=== PATIENT | male | born 1975 | race Caucasian/White ===

== ENCOUNTER 2020-05-20 13:48 | Emergency (ER) ==
[~2020-05-20] VITALS: Ht 175.3 cm; Wt 72.7 kg
== END 2020-05-20 14:12 | disposition left against medical advice (07) ==
LOC: COL.ER 13:48
DX: R53.81 Other malaise (principal); Z53.21 Procedure and treatment not carried out due to patient leaving prior to being seen by health care provider

== ENCOUNTER 2020-05-20 20:00 | Emergency (ER) ==
[~2020-05-20] VITALS: Ht 175.3 cm; Wt 68.2 kg
== END 2020-05-20 20:30 | disposition left against medical advice (07) ==
LOC: COL.ER 20:00
DX: F41.9 Anxiety disorder, unspecified (principal)

== ENCOUNTER → 2020-06-04 | Emergency (ER) ==
[~2020-06-04] MED LIST: ADDERALL30 MG PO; VISTARIL100 MG PO
== END ==
LOC: COL.ER 00:12
DX: Z72.9 Problem related to lifestyle, unspecified (principal)

== ENCOUNTER 2020-06-06 11:36 | Emergency (ER) | payer OTHER ==
[~2020-06-06] VITALS: Ht 175.3 cm; Wt 70.5 kg
[2020-06-06 11:50] VITALS: BP 133/100; PULSE 84; TEMP 98.3
[2020-06-06] MEDS ORDERED: ADDERALL30 MG PO (13:19)
[2020-06-06] MEDS ORDERED: VISTARIL100 MG PO (13:20)
[2020-06-06 13:39] LABS: COLLECTION METHOD CLEAN CATCH
[2020-06-06 13:43] LABS: BASO # 0.1 (0.0-0.2); BASO % 0.9 % (0.0-2.0); EOS # 0.2 (0.0-0.7); EOS % 2.7 % (0-4.0); GRAN # 4.9 (1.4-6.5); GRAN % 62.2 % (42.2-75.2); LYMPH % 25.2 % (20.0-51.0); MEAN CELL VOLUME 91 fl (80.0-100.0); MEAN CORPUSCULAR HEMOGLOBIN 31 pg (27.0-31.0); MEAN CORPUSCULAR HGB CONC 34 g/dl (33.0-37.0); MONO # 0.6 (0.1-0.6); MONO % 8.2 % (1.7-9.3); PLATELET COUNT 379 K/mm3 (130-400); REDCELL DISTRIBUTION WIDTH-CV 12.5 % (11.5-14.5)
[2020-06-06 13:52] LABS: MUCOUS Present /lpf; PH 5 (5-8); SQUAMOUS EPITHELIAL 0-2 /hpf; URINE APPEARANCE Clear; URINE BACTERIA None Seen /hpf; URINE BILIRUBIN Negative (NEGATIVE); URINE BLOOD Negative (NEGATIVE); URINE COLOR Yellow; URINE GLUCOSE Negative (NEGATIVE); URINE KETONE Negative (NEGATIVE); URINE LEUKOCYTE ESTERASE Negative (NEGATIVE); URINE NITRATE Negative (NEGATIVE); URINE PROTEIN(semi-quant) Negative (NEGATIVE); URINE RBC 0-2 /hpf; URINE UROBILINOGEN Negative (NEGATIVE)
[2020-06-06 13:56] LABS: ALANINE AMINOTRANSFERASE 17 U/L (4-49); ALBUMIN 4.2 gm/dL (3.5-5.0); ALCOHOL(ethanol),MEDICAL < 10 mg/dL; ALKALINE PHOSPHATASE 78 U/L (50-136); ANION GAP 6 mmol/L (7-16); AST,SGOT 22 U/L (15-37); BILIRUBIN,TOTAL 0.6 mg/dL (0.0-1.0); BLOOD UREA NITROGEN 13 mg/dL (9-20); CARBON DIOXIDE 26 mmol/L (22-30); CHLORIDE 105 mmol/L (98-107); CREATININE, serum 0.82 (0.66-1.25); GLUCOSE 100 mg/dL (74-106); POTASSIUM 4.2 mmol/L (3.4-5.0); SODIUM 138 mmol/L (137-145); TOTAL PROTEIN 7.3 gm/dL (6.4-8.2)
[2020-06-06 13:58] LABS: TRICYCLIC ANTIDEPRESS URINE NEGATIVE
== END 2020-06-06 14:06 | disposition left against medical advice (07) ==
LOC: COL.ER 11:36
PROVIDERS: Physician Assistant
DX: F15.980 Other stimulant use, unspecified with stimulant-induced anxiety disorder (principal); F17.200 Nicotine dependence, unspecified, uncomplicated

== ENCOUNTER 2020-07-14 14:36 | Emergency (ER) | payer OTHER ==
[~2020-07-14] VITALS: Ht 175.3 cm; Wt 70.5 kg
[2020-07-14] MEDS ORDERED: NAPROSYN500 MG PO (15:13)
[2020-07-14 15:25] VITALS: BP 158/89; PULSE 89; TEMP 98.9
[2020-07-16] MEDS ORDERED: PEN-VEE K500 MG PO (11:12)
== END 2020-07-14 15:27 | disposition home or self-care (01) ==
LOC: COL.ER 14:36
DX: M72.2 Plantar fascial fibromatosis (principal); F90.9 Attention-deficit hyperactivity disorder, unspecified type; F41.9 Anxiety disorder, unspecified; F17.210 Nicotine dependence, cigarettes, uncomplicated; Z88.8 Allergy status to other drugs, medicaments and biological substances

== ENCOUNTER 2020-07-15 20:49 | Emergency (ER) | payer OTHER ==
[~2020-07-15] VITALS: Ht 175.3 cm; Wt 70.5 kg
[~2020-07-15 20:49] MED LIST changes: +NAPROSYN500 MG PO
[2020-07-15 21:40] VITALS: TEMP 98.8
[2020-07-15 21:49] LABS: STREP SCREEN NEGATIVE
[2020-07-15 22:00] VITALS: BP 173/112; PULSE 100
[2020-07-16] MEDS ORDERED: PEN-VEE K500 MG PO (11:12)
== END 2020-07-15 22:03 | disposition home or self-care (01) ==
LOC: COL.ER 20:49
PROVIDERS: Nurse Practitioner
DX: B34.9 Viral infection, unspecified (principal); F17.210 Nicotine dependence, cigarettes, uncomplicated; Z88.8 Allergy status to other drugs, medicaments and biological substances; Z88.6 Allergy status to analgesic agent

== ENCOUNTER → 2020-07-16 | Emergency (ER) | payer OTHER ==
[~2020-07-16] VITALS: Ht 175.3 cm; Wt 70.5 kg
[~2020-07-16] MED LIST changes: +PEN-VEE K500 MG PO
[2020-07-16 10:56] VITALS: BP 164/109; PULSE 103; TEMP 99.2
== END ==
LOC: COL.ER 10:56
DX: J02.8 Acute pharyngitis due to other specified organisms (principal); F17.210 Nicotine dependence, cigarettes, uncomplicated; Z88.8 Allergy status to other drugs, medicaments and biological substances

== ENCOUNTER 2020-08-23 09:31 | Emergency (ER) | payer OTHER ==
[~2020-08-23] VITALS: Ht 175.3 cm; Wt 68.2 kg
[2020-08-23 09:36] VITALS: TEMP 97.9
[2020-08-23 10:01] LABS: COLLECTION METHOD CLEAN CATCH
[2020-08-23 10:11] LABS: BASO # 0.1 (0.0-0.2); BASO % 1.2 % (0.0-2.0); EOS # 0.2 (0.0-0.7); EOS % 2.5 % (0-4.0); GRAN # 4.3 (1.4-6.5); GRAN % 59.3 % (42.2-75.2); HEMATOCRIT 40.1 % (42.0-52.0); HEMOGLOBIN 13.8 g/dl (13.5-18.0); LYMPH % 27.9 % (20.0-51.0); MEAN CELL VOLUME 91 fl (80.0-100.0); MEAN CORPUSCULAR HEMOGLOBIN 31 pg (27.0-31.0); MEAN CORPUSCULAR HGB CONC 34 g/dl (33.0-37.0); MEAN PLATELET VOLUME 9.3 fl (7.4-10.4); MONO # 0.6 (0.1-0.6); MONO % 8.7 % (1.7-9.3); PLATELET COUNT 355 K/mm3 (130-400); RED BLOOD COUNT 4.41 M/mm3 (4.20-5.60); REDCELL DISTRIBUTION WIDTH-CV 12.3 % (11.5-14.5)
[2020-08-23 10:17] LABS: PH 5 (5-8); SQUAMOUS EPITHELIAL None Seen /hpf; URINE APPEARANCE Clear; URINE BACTERIA None Seen /hpf; URINE BILIRUBIN Negative (NEGATIVE); URINE BLOOD Negative (NEGATIVE); URINE COLOR Yellow; URINE GLUCOSE Negative (NEGATIVE); URINE KETONE Negative (NEGATIVE); URINE LEUKOCYTE ESTERASE Negative (NEGATIVE); URINE NITRATE Negative (NEGATIVE); URINE PROTEIN(semi-quant) Negative (NEGATIVE); URINE RBC 0-2 /hpf; URINE UROBILINOGEN Negative (NEGATIVE)
[2020-08-23 10:21] VITALS: BP 179/96; PULSE 86
[2020-08-23 10:28] LABS: ALANINE AMINOTRANSFERASE 16 U/L (4-49); ALBUMIN 4.2 gm/dL (3.5-5.0); ALKALINE PHOSPHATASE 82 U/L (50-136); ANION GAP 7 mmol/L (7-16); AST,SGOT 27 U/L (15-37); BILIRUBIN,TOTAL 0.6 mg/dL (0.0-1.0); BLOOD UREA NITROGEN 12 mg/dL (9-20); CALCIUM 8.8 mg/dL (8.4-10.2); CARBON DIOXIDE 29 mmol/L (22-30); CHLORIDE 102 mmol/L (98-107); CREATININE, serum 0.95 (0.66-1.25); GLUCOSE 106 mg/dL (74-106); LIPASE 94 U/L (23-300); POTASSIUM 3.4 mmol/L (3.4-5.0); SODIUM 138 mmol/L (137-145); TOTAL PROTEIN 7.2 gm/dL (6.4-8.2)
[2020-08-23 10:34] LABS: C-REACTIVE PROTEIN < 0.5 mg/dL (0.0-0.9)
== END 2020-08-23 10:22 | disposition left against medical advice (07) ==
LOC: COL.ER 09:31
PROVIDERS: Family Medicine
DX: R30.0 Dysuria (principal); G89.29 Other chronic pain; Z87.891 Personal history of nicotine dependence; Z79.1 Long term (current) use of non-steroidal anti-inflammatories (NSAID)
CPT/HCPCS: J7120

== ENCOUNTER 2020-10-21 07:00 | Emergency (ER) | payer OTHER ==
[2020-10-21 07:04] VITALS: BP 175/114; PULSE 99; TEMP 97.9
== END 2020-10-21 07:23 | disposition home or self-care (01) ==
LOC: COL.ER 07:00
DX: F15.120 Other stimulant abuse with intoxication, uncomplicated (principal); G89.29 Other chronic pain; K08.89 Other specified disorders of teeth and supporting structures; I10 Essential (primary) hypertension; Z88.8 Allergy status to other drugs, medicaments and biological substances

== ENCOUNTER 2020-11-06 09:45 | Emergency (ER) | payer OTHER ==
[~2020-11-06] VITALS: Ht 175.3 cm; Wt 75.0 kg
[2020-11-06 09:47] VITALS: TEMP 98.6
[2020-11-06 10:45] VITALS: BP 138/98; PULSE 99
== END 2020-11-06 10:45 | disposition home or self-care (01) ==
LOC: COL.ER 09:45
DX: F15.10 Other stimulant abuse, uncomplicated (principal); F41.0 Panic disorder [episodic paroxysmal anxiety]; F17.200 Nicotine dependence, unspecified, uncomplicated; Z88.8 Allergy status to other drugs, medicaments and biological substances

== ENCOUNTER 2020-11-06 21:53 | Emergency (ER) | payer OTHER ==
[~2020-11-06] VITALS: Ht 175.3 cm; Wt 75.0 kg
[2020-11-06 21:57] VITALS: TEMP 98.7
[2020-11-06 23:29] LABS: BASO # 0.1 (0.0-0.2); BASO % 0.7 % (0.0-2.0); EOS % 0.3 % (0-4.0); GRAN # 3.9 (1.4-6.5); GRAN % 54.7 % (42.2-75.2); HEMATOCRIT 42.8 % (42.0-52.0); HEMOGLOBIN 14.3 g/dl (13.5-18.0); LYMPH % 27.2 % (20.0-51.0); MEAN CELL VOLUME 93 fl (80.0-100.0); MEAN CORPUSCULAR HEMOGLOBIN 31 pg (27.0-31.0); MEAN CORPUSCULAR HGB CONC 33 g/dl (33.0-37.0); MEAN PLATELET VOLUME 9.1 fl (7.4-10.4); MONO # 1.2 (0.1-0.6); MONO % 16.3 % (1.7-9.3); PLATELET COUNT 291 K/mm3 (130-400); RED BLOOD COUNT 4.58 M/mm3 (4.20-5.60); REDCELL DISTRIBUTION WIDTH-CV 12.5 % (11.5-14.5)
[2020-11-06 23:39] LABS: ALANINE AMINOTRANSFERASE 21 U/L (4-49); ALBUMIN 4.1 gm/dL (3.5-5.0); ALKALINE PHOSPHATASE 91 U/L (50-136); ANION GAP 9 mmol/L (7-16); AST,SGOT 32 U/L (15-37); BILIRUBIN,TOTAL 0.5 mg/dL (0.0-1.0); BLOOD UREA NITROGEN 13 mg/dL (9-20); CARBON DIOXIDE 26 mmol/L (22-30); CHLORIDE 100 mmol/L (98-107); GLUCOSE 122 mg/dL (74-106); POTASSIUM 3.9 mmol/L (3.4-5.0); SODIUM 135 mmol/L (137-145); TOTAL PROTEIN 7.1 gm/dL (6.4-8.2)
[2020-11-06 23:50] LABS: TROPONIN-I < 0.012 ng/mL (0.000-0.035)
[2020-11-07 00:21] VITALS: BP 154/98; PULSE 70
== END 2020-11-07 00:21 | disposition home or self-care (01) ==
LOC: COL.ER 21:53
PROVIDERS: Physician Assistant
DX: F15.10 Other stimulant abuse, uncomplicated (principal); F17.210 Nicotine dependence, cigarettes, uncomplicated; Z88.8 Allergy status to other drugs, medicaments and biological substances

== ENCOUNTER 2020-11-26 03:27 | Emergency (ER) | payer OTHER ==
[~2020-11-26] VITALS: Ht 175.3 cm; Wt 74.5 kg
[2020-11-26 03:52] VITALS: BP 163/96; TEMP 97.9
[2020-11-26] MEDS ORDERED: AMOXICILLIN 50500 MG PO (04:20)
[2020-11-26] MEDS ORDERED: PERIDEX (CHLOR480 ML MM (04:20)
[2020-11-26 04:45] VITALS: PULSE 91
[2020-11-27] MEDS ORDERED: CLEOCIN HCL300 MG PO (04:02)
== END 2020-11-26 04:45 | disposition home or self-care (01) ==
LOC: COL.ER 03:27
DX: K04.7 Periapical abscess without sinus (principal); F17.210 Nicotine dependence, cigarettes, uncomplicated; Z88.1 Allergy status to other antibiotic agents

== ENCOUNTER 2020-11-27 03:46 | Emergency (ER) | payer OTHER ==
[~2020-11-27] VITALS: Ht 175.3 cm; Wt 72.7 kg
[~2020-11-27 03:46] MED LIST changes: +AMOXICILLIN 50500 MG PO; +PERIDEX (CHLOR480 ML MM
[2020-11-27 03:49] VITALS: BP 146/92; PULSE 85; TEMP 97.7
[2020-11-27] MEDS ORDERED: CLEOCIN HCL300 MG PO (04:02)
== END 2020-11-27 04:22 | disposition home or self-care (01) ==
LOC: COL.ER 03:46
DX: K04.7 Periapical abscess without sinus (principal); Z87.891 Personal history of nicotine dependence; Z88.8 Allergy status to other drugs, medicaments and biological substances

== ENCOUNTER 2020-11-27 18:43 | Emergency (ER) | payer OTHER ==
[~2020-11-27] VITALS: Ht 175.3 cm; Wt 81.8 kg
[2020-11-27 18:43] VITALS: BP 155/75; PULSE 103; TEMP 98.2
[~2020-11-27 18:43] MED LIST changes: +CLEOCIN HCL300 MG PO
== END 2020-11-27 20:00 | disposition home or self-care (01) ==
LOC: COL.ER 18:43
DX: R10.13 Epigastric pain (principal); K04.7 Periapical abscess without sinus; F17.200 Nicotine dependence, unspecified, uncomplicated; Z88.8 Allergy status to other drugs, medicaments and biological substances

== ENCOUNTER 2020-11-29 04:54 | Emergency (ER) | payer OTHER ==
[~2020-11-29] VITALS: Ht 175.3 cm; Wt 72.7 kg
[2020-11-29 05:17] VITALS: BP 152/87; TEMP 97.7
[2020-11-29] MEDS ORDERED: NAPROSYN500 MG PO (06:02)
[2020-11-29 06:16] VITALS: PULSE 95
== END 2020-11-29 06:16 | disposition home or self-care (01) ==
LOC: COL.ER 04:54
DX: K08.89 Other specified disorders of teeth and supporting structures (principal); Z88.8 Allergy status to other drugs, medicaments and biological substances
CPT/HCPCS: J0696

== ENCOUNTER → 2020-12-01 | Emergency (ER) | payer OTHER ==
[~2020-12-01] VITALS: Ht 177.8 cm; Wt 72.7 kg
[2020-12-01 03:05] VITALS: TEMP 97
[2020-12-01 03:52] VITALS: BP 149/87; PULSE 89
[2020-12-02 12:37] LABS: COLLECTION METHOD CLEAN CATCH
[2020-12-02 13:06] LABS: MUCOUS Present /lpf; PH 5 (5-8); SQUAMOUS EPITHELIAL 0-2 /hpf; URINE APPEARANCE Clear; URINE BACTERIA None Seen /hpf; URINE BILIRUBIN Negative (NEGATIVE); URINE BLOOD 3+ (NEGATIVE); URINE COLOR Yellow; URINE GLUCOSE Negative (NEGATIVE); URINE KETONE Negative (NEGATIVE); URINE LEUKOCYTE ESTERASE Negative (NEGATIVE); URINE NITRATE Negative (NEGATIVE); URINE PROTEIN(semi-quant) 1+ (NEGATIVE); URINE RBC >50 /hpf; URINE UROBILINOGEN Negative (NEGATIVE)
== END ==
LOC: COL.ER 02:48
PROVIDERS: Emergency Medicine
DX: K04.7 Periapical abscess without sinus (principal); F17.210 Nicotine dependence, cigarettes, uncomplicated; Z88.8 Allergy status to other drugs, medicaments and biological substances

== ENCOUNTER 2021-02-03 04:33 | Emergency (ER) | payer OTHER ==
[~2021-02-03] VITALS: Ht 177.8 cm; Wt 72.7 kg
[2021-02-03 04:35] VITALS: TEMP 98.1
[2021-02-03 04:40] VITALS: BP 168/100; PULSE 102
[2021-02-03 05:05] LABS: COLLECTION METHOD CLEAN CATCH
[2021-02-03 05:14] LABS: MUCOUS Present /lpf; PH 5 (5-8); SQUAMOUS EPITHELIAL 0-2 /hpf; URINE APPEARANCE Clear; URINE BACTERIA None Seen /hpf; URINE BILIRUBIN Negative (NEGATIVE); URINE BLOOD Negative (NEGATIVE); URINE COLOR Yellow; URINE GLUCOSE Negative (NEGATIVE); URINE KETONE Negative (NEGATIVE); URINE LEUKOCYTE ESTERASE Negative (NEGATIVE); URINE NITRATE Negative (NEGATIVE); URINE PROTEIN(semi-quant) Negative (NEGATIVE); URINE UROBILINOGEN Negative (NEGATIVE)
== END 2021-02-03 05:06 | disposition left against medical advice (07) ==
LOC: COL.ER 04:33
PROVIDERS: Emergency Medicine
DX: F41.9 Anxiety disorder, unspecified (principal); R30.0 Dysuria; G89.29 Other chronic pain; M54.9 Dorsalgia, unspecified; F17.210 Nicotine dependence, cigarettes, uncomplicated; Z88.1 Allergy status to other antibiotic agents; Z79.1 Long term (current) use of non-steroidal anti-inflammatories (NSAID)

== ENCOUNTER 2021-02-20 05:13 | Emergency (ER) | payer OTHER ==
[~2021-02-20] VITALS: Ht 177.8 cm; Wt 72.7 kg
[2021-02-20 05:16] VITALS: BP 144/102; TEMP 97.7
[2021-02-20 06:23] VITALS: PULSE 99
== END 2021-02-20 06:24 | disposition home or self-care (01) ==
LOC: COL.ER 05:13
DX: F41.9 Anxiety disorder, unspecified (principal); R45.0 Nervousness; F15.90 Other stimulant use, unspecified, uncomplicated; Z88.8 Allergy status to other drugs, medicaments and biological substances

== ENCOUNTER 2021-03-18 15:11 | Emergency (ER) | payer OTHER ==
[~2021-03-18] VITALS: Ht 177.8 cm; Wt 72.7 kg
[2021-03-18 15:17] VITALS: BP 149/97; PULSE 76; TEMP 98
== END 2021-03-18 15:25 | disposition left against medical advice (07) ==
LOC: COL.ER 15:11
DX: R53.81 Other malaise (principal)

== ENCOUNTER 2021-07-05 05:52 | Emergency (ER) | payer OTHER | END 2021-07-05 06:10 | disposition left against medical advice (07) | LOC: COL.ER 05:52 | DX: R69 Illness, unspecified (principal) ==

== ENCOUNTER 2021-07-23 16:56 | Emergency (ER) | payer OTHER ==
[~2021-07-23] VITALS: Ht 403.9 cm; Wt 70.5 kg
[2021-07-23 17:23] VITALS: BP 144/105; PULSE 121; TEMP 98.3
[2021-07-23 17:42] LABS: COLLECTION METHOD CLEAN CATCH
[2021-07-23 17:49] LABS: PH 6 (5-8); SQUAMOUS EPITHELIAL None Seen /hpf; URINE APPEARANCE Clear; URINE BACTERIA None Seen /hpf; URINE BILIRUBIN Negative (NEGATIVE); URINE BLOOD 1+ (NEGATIVE); URINE COLOR Yellow; URINE GLUCOSE Negative (NEGATIVE); URINE KETONE Negative (NEGATIVE); URINE LEUKOCYTE ESTERASE Negative (NEGATIVE); URINE NITRATE Negative (NEGATIVE); URINE PROTEIN(semi-quant) Negative (NEGATIVE); URINE RBC 0-2 /hpf
[2021-07-23 17:55] LABS: BASO # 0.1 K/mm3 (0.0-0.2); BASO % 1.1 % (0.0-2.0); EOS # 0.1 K/mm3 (0.0-0.7); EOS % 1.6 % (0-4.0); GRAN # 3.5 K/mm3 (1.4-6.5); GRAN % 53.8 % (42.2-75.2); LYMPH # 1.9 K/mm3 (1.2-3.4); LYMPH % 29.5 % (20.0-51.0); MEAN CELL VOLUME 92 fl (80.0-100.0); MEAN CORPUSCULAR HEMOGLOBIN 31 pg (27.0-31.0); MEAN CORPUSCULAR HGB CONC 34 g/dl (33.0-37.0); MEAN PLATELET VOLUME 9.1 fl (7.4-10.4); MONO # 0.9 K/mm3 (0.1-0.6); MONO % 13.5 % (1.7-9.3); PLATELET COUNT 352 K/mm3 (130-400); REDCELL DISTRIBUTION WIDTH-CV 12.3 % (11.5-14.5)
[2021-07-23 18:12] LABS: ALBUMIN 3.9 gm/dL (3.5-5.0); BILIRUBIN,TOTAL 1.1 mg/dL (0.2-1.2); CALCIUM 9.8 mg/dL (8.4-10.2); CREATININE, serum 1.26 mg/dL (0.72-1.25); POTASSIUM 4.2 mmol/L (3.5-4.5); TOTAL PROTEIN 7.4 gm/dL (6.2-8.1)
== END 2021-07-23 18:01 | disposition left against medical advice (07) ==
LOC: COL.ER 16:56
PROVIDERS: Nurse Practitioner
DX: R10.9 Unspecified abdominal pain (principal); F17.200 Nicotine dependence, unspecified, uncomplicated; Z87.448 Personal history of other diseases of urinary system

== ENCOUNTER 2021-09-15 00:31 | Emergency (ER) | payer OTHER ==
[~2021-09-15] VITALS: Ht 177.8 cm; Wt 86.4 kg
[2021-09-15 00:31] VITALS: TEMP 97.2
[2021-09-15 04:54] VITALS: BP 136/78
[2021-09-15 06:20] VITALS: PULSE 86
== END 2021-09-15 06:20 | disposition home or self-care (01) ==
LOC: COL.ER 00:31
DX: F13.129 Sedative, hypnotic or anxiolytic abuse with intoxication, unspecified (principal); F10.129 Alcohol abuse with intoxication, unspecified; F17.210 Nicotine dependence, cigarettes, uncomplicated

== ENCOUNTER 2022-01-14 03:35 | Emergency (ER) | payer SELFPAY ==
[~2022-01-14] VITALS: Ht 170.2 cm; Wt 75.0 kg
[2022-01-14 03:39] VITALS: TEMP 98.3
[2022-01-14 04:23] LABS: COLLECTION METHOD CLEAN CATCH
[2022-01-14 04:32] LABS: PH 6 (5-8); SQUAMOUS EPITHELIAL None Seen /hpf (0-10); URINE APPEARANCE Clear (CLEAR/HAZY); URINE BACTERIA Rare /hpf (NONE SEEN); URINE BILIRUBIN Negative (NEGATIVE); URINE BLOOD Negative (NEGATIVE); URINE COLOR Yellow (YELLOW); URINE GLUCOSE Negative (NEGATIVE); URINE KETONE Negative (NEGATIVE); URINE LEUKOCYTE ESTERASE Negative (NEGATIVE); URINE NITRATE Negative (NEGATIVE); URINE PROTEIN(semi-quant) 2+ (NEGATIVE); URINE RBC 0-2 /hpf (0-2); URINE UROBILINOGEN Negative (NEGATIVE)
[2022-01-14 04:42] LABS: TRICYCLIC ANTIDEPRESS URINE NEGATIVE
[2022-01-14 05:58] VITALS: BP 147/112; PULSE 104
== END 2022-01-14 06:00 | disposition home or self-care (01) ==
LOC: COL.ER 03:35
PROVIDERS: Student in an Organized Health Care Education/Training Program
DX: F15.10 Other stimulant abuse, uncomplicated (principal); F12.10 Cannabis abuse, uncomplicated

== ENCOUNTER 2022-01-16 08:07 | Emergency (ER) | payer OTHER ==
[~2022-01-16] VITALS: Ht 175.3 cm; Wt 70.5 kg
[2022-01-16 08:29] VITALS: TEMP 97.8
[2022-01-16 09:10] LABS: BASO # 0.1 K/mm3 (0.0-0.2); BASO % 0.8 % (0.0-2.0); EOS # 0.1 K/mm3 (0.0-0.7); EOS % 1.6 % (0.0-4.0); GRAN # 5.3 K/mm3 (1.4-6.5); GRAN % 59.6 % (42.2-75.2); HEMATOCRIT 41.5 % (42.0-52.0); LYMPH # 2.5 K/mm3 (1.2-3.4); LYMPH % 27.8 % (20.0-51.0); MEAN CELL VOLUME 91 fl (80.0-100.0); MEAN CORPUSCULAR HEMOGLOBIN 31 pg (27-31); MEAN CORPUSCULAR HGB CONC 34 g/dl (33.0-37.0); MEAN PLATELET VOLUME 9.4 fl (7.4-10.4); MONO # 0.9 K/mm3 (0.1-0.6); MONO % 9.8 % (1.7-9.3); PLATELET COUNT 307 K/mm3 (130-400); RED BLOOD COUNT 4.57 M/mm3 (4.20-5.60); REDCELL DISTRIBUTION WIDTH-CV 13.1 % (11.5-14.5)
[2022-01-16 09:27] LABS: ALBUMIN 3.4 gm/dL (3.5-5.0); BILIRUBIN,TOTAL 0.4 mg/dL (0.2-1.2); CALCIUM 8.4 mg/dL (8.4-10.2); CREATININE, serum 1.35 mg/dL (0.72-1.25); POTASSIUM 4.2 mmol/L (3.5-4.5); TOTAL PROTEIN 6.3 gm/dL (6.2-8.1)
[2022-01-16 09:33] LABS: TROPONIN-I 0.027 ng/mL (0.00-0.033)
[2022-01-16 12:31] VITALS: BP 135/97; PULSE 98
== END 2022-01-16 12:31 | disposition home or self-care (01) ==
LOC: COL.ER 08:07
PROVIDERS: Personal Emergency Response Attendant
DX: R07.89 Other chest pain (principal); F17.210 Nicotine dependence, cigarettes, uncomplicated
CPT/HCPCS: J2060; J2270; J2405

== ENCOUNTER 2022-01-17 01:41 | Emergency (ER) | payer OTHER ==
[~2022-01-17] VITALS: Ht 177.8 cm; Wt 70.5 kg
[2022-01-17 01:49] VITALS: BP 134/99; PULSE 100; TEMP 98.2
[2022-01-26] MEDS ORDERED: ULTRAM 50MG TAB50 MG PO (11:48)
== END 2022-01-17 02:25 | disposition left against medical advice (07) ==
LOC: COL.ER 01:41
DX: R07.2 Precordial pain (principal); F17.210 Nicotine dependence, cigarettes, uncomplicated

== ENCOUNTER 2022-01-17 20:52 | Emergency (ER) | payer OTHER ==
[~2022-01-17] VITALS: Ht 175.3 cm; Wt 70.5 kg
[2022-01-17 20:58] VITALS: TEMP 99.2
[2022-01-17 21:49] VITALS: BP 144/78; PULSE 76
== END 2022-01-17 21:49 | disposition home or self-care (01) ==
LOC: COL.ER 20:52
DX: R07.9 Chest pain, unspecified (principal); F17.210 Nicotine dependence, cigarettes, uncomplicated

== ENCOUNTER 2022-01-18 06:11 | Emergency (ER) | payer OTHER ==
[~2022-01-18] VITALS: Ht 175.3 cm; Wt 70.5 kg
[2022-01-18 06:16] VITALS: TEMP 97.6
[2022-01-18 06:30] VITALS: BP 143/105; PULSE 104
== END 2022-01-18 06:30 | disposition home or self-care (01) ==
LOC: COL.ER 06:11
DX: R07.9 Chest pain, unspecified (principal)

== ENCOUNTER 2022-02-15 00:46 | Emergency (ER) | payer OTHER ==
[~2022-02-15] VITALS: Ht 175.3 cm; Wt 68.2 kg
[~2022-02-15 00:46] MED LIST changes: +ULTRAM 50MG TAB50 MG PO
[2022-02-15 01:01] VITALS: BP 144/98; PULSE 105; TEMP 98.1
== END 2022-02-15 01:01 | disposition home or self-care (01) ==
LOC: COL.ER 00:46
DX: F41.9 Anxiety disorder, unspecified (principal); F17.210 Nicotine dependence, cigarettes, uncomplicated; Z28.310 Unvaccinated for COVID-19

== ENCOUNTER 2023-07-20 19:10 | Emergency (ER) | payer OTHER ==
[~2023-07-20] VITALS: Ht 175.3 cm; Wt 72.7 kg
[~2023-07-20 19:10] MED LIST changes: +DOXYCYCLINE 10100 MG PO
[2023-07-20 19:16] VITALS: BP 158/108; PULSE 108; TEMP 97.9
[2023-07-20 19:36] LABS: BASO # 0.1 K/mm3 (0.0-0.2); BASO % 0.8 % (0.0-2.0); EOS # 0.1 K/mm3 (0.0-0.7); EOS % 0.9 % (0.0-4.0); GRAN # 6.4 K/mm3 (1.4-6.5); GRAN % 69.2 % (42.2-75.2); HEMATOCRIT 40.3 % (42.0-52.0); HEMOGLOBIN 13.4 g/dl (13.5-18.0); LYMPH % 21.5 % (20.0-51.0); MEAN CELL VOLUME 98 fl (80.0-100.0); MEAN CORPUSCULAR HEMOGLOBIN 33 pg (27-31); MEAN CORPUSCULAR HGB CONC 33 g/dl (33.0-37.0); MEAN PLATELET VOLUME 10.1 fl (7.4-10.4); MONO # 0.7 K/mm3 (0.1-0.6); MONO % 7.5 % (1.7-9.3); PLATELET COUNT 301 K/mm3 (130-400); RED BLOOD COUNT 4.12 M/mm3 (4.20-5.60); REDCELL DISTRIBUTION WIDTH-CV 12.9 % (11.5-14.5)
[2023-07-20 19:44] LABS: INR 1.1 (0.8-3.0); PROTHROMBIN TIME 12.5 SECONDS (9.7-12.8)
[2023-07-20 19:47] LABS: PARTIAL THROMBOPLASTIN TIME 31.8 SECONDS (26.0-37.0)
[2023-07-20 20:05] LABS: ALBUMIN 3.2 gm/dL (3.5-5.0); BILIRUBIN,TOTAL 0.6 mg/dL (0.2-1.2); CALCIUM 8.6 mg/dL (8.4-10.2); CREATININE, serum 1.74 mg/dL (0.72-1.25); MAGNESIUM 1.8 mg/dL (1.6-2.6); POTASSIUM 4.2 mmol/L (3.5-4.5); TOTAL PROTEIN 5.9 gm/dL (6.2-8.1)
[2023-07-20 20:12] LABS: TROPONIN-I 0.035 ng/mL (0.00-0.033)
== END 2023-07-20 20:12 | disposition home or self-care (01) ==
LOC: COL.ER 19:10
PROVIDERS: Family Medicine
DX: R00.0 Tachycardia, unspecified (principal); R07.2 Precordial pain; R06.02 Shortness of breath; R45.1 Restlessness and agitation; R10.9 Unspecified abdominal pain; F17.210 Nicotine dependence, cigarettes, uncomplicated; Z28.310 Unvaccinated for COVID-19